=== PATIENT | female | born 1940 | race Caucasian/White ===

== ENCOUNTER → 2018-11-20 | Day surgery (SDC) | payer MEDICARE ==
[2018-11-18 17:20] LABS: BASOPHILS % 0.7 % (0.0-1.0); EOSINOPHILS % 0.5 % (0.0-6.0); HEMATOCRIT 38.6 % (34.2-44.1); HEMOGLOBIN 12.4 g/dL (12.0-16.0); LYMPHOCYTES # (AUTO) 1.8 (1.0-3.2); LYMPHOCYTES % 42.8 % (18.0-39.1); MEAN CORPUSCULAR HEMOGLOBIN 29.9 pg (28-32); MEAN CORPUSCULAR HGB CONC 32.1 g/dL (31-35); MONOCYTES # (AUTO) 0.4 (0.2-0.8); NEUTROPHILS % 46.8 % (38.7-80.0); PLATELET COUNT 174 x10e3/uL (140-360); RED BLOOD COUNT 4.15 x10e6/uL (3.6-5.1); RED CELL DISTRIBUTION WIDTH 12.9 % (11.7-14.4)
[~2018-11-20] MED LIST: AMLODIPINE BESYL5 MG PO; ASPIRIN81 MG PO; ATENOLOL50 MG PO; ATORVASTATIN CA40 MG PO; CELEXA20 MG PO; FENTANYL CITRATE/PF 100MCG/2 ML INJ ONE; HYDROCHLOROTH12.5 M1 PO; PLAVIX75 MG PO; PRIMADONE PO; PROPOFOL IV EMULSION 10 MG/ML 50 ML VIAL ONE; SYNTHROID50 MCG PO; VITAMIN C100 MG PO; VITAMIN D400 UNIT PO; WELLBUTRIN SR150 MG PO; lantanoprost OU; vicodin
--- OUTSIDE RECORDS SUMMARY | 2018-11-20 07:26 | XMS REPORT ---
Author Author [facility] Address Unknown Phone Unavailable Care Team Providers Care Agriculture Research Director Name Role Phone DR ANABELLA KIM Unavailable Unavailable Problems This patient has no known problems. Allergies, Adverse Reactions, Alerts This patient has no known allergies or adverse reactions. Medications This patient has no known medications. Results Test Description Test Time Test Comments Text Results Atomic Results Result Comments BREAST ULTRASOUND BILATERAL 2018-09-29 12:30:58 - DIAG MAMM BILATERAL YAZAN CAD DIGITAL W/AUGMENTATIONBILATERAL DIGITAL DIAGNOSTIC MAMMOGRAM 3D/2D WITH CAD WITH AUGMENTATION: 09/29/2018Digital breast tomosynthesis was performed in addition to routine CC and MLO views. Current mammographic images were evaluated by either a [employer] M-Vu or a [employer] Image[employer] CAD (computer aided detection system). Comparison is made to exams dated 03/03/2009 mammogram and 10/24/2005 mammogram - [facility]. There are scattered fibroglandular tissues in both breasts. Bilateral implants are in place. There are post operative findings and biopsy clips in the right breast. No suspicious mass, architectural distortion, malignant type calcification, or lymph node abnormality detected. INCOMPLETE ASSESSMENT: ADDITIONAL IMAGING EVALUATION RECOMMENDEDUltrasound pending for additional evaluation. Resume annual screening mammography in one year. - BREAST ULTRASOUND BILATERALULTRASOUND OF BOTH BREASTS AND BOTH AXILLA: 09/29/2018Comparison is made to exams dated 03/03/2009 mammogram and 10/24/2005 mammogram - [facility]. Real- time ultrasound of both breasts and both axilla was performed. No abnormalities were seen sonographically in either breast or either axilla. Clinical breast exam was unremarkable, except for contractures around the left implant.IMPRESSION: NEGATIVE There is no sonographic evidence of malignancy. Patient has been informed that she should have a screening mammogram and supplemental ultrasound in 1 year.Guillermina Marquez M.D. dm/:09/29/2018 12:30:58 [employer]er [employer] Unloader: [employer], [facility]: BIRADS 1-2 Combo FU Letter Mammogram BI-RADS: 0 Indeterminate Ultrasound BI-RADS: 1 Negative DIAG MAMM BILATERAL YAZAN CAD DIGITAL W/AUGMENTATION 2018-09-29 12:30:58 - DIAG MAMM BILATERAL YAZAN CAD DIGITAL W/AUGMENTATIONBILATERAL DIGITAL DIAGNOSTIC MAMMOGRAM 3D/2D WITH CAD WITH AUGMENTATION: 09/29/2018Digital breast tomosynthesis was performed in addition to routine CC and MLO views. Current mammographic images were evaluated by either a [employer] M-Vu or a [employer] CAD (computer aided detection system). Comparison is made to exams dated 03/03/2009 mammogram [facility] There are scattered fibroglandular tissues in both breasts. Bilateral implants are in place. There are post operative findings and biopsy clips in the right breast. No suspicious mass, architectural distortion, malignant type calcification, or lymph node abnormality detected. INCOMPLETE ASSESSMENT: ADDITIONAL IMAGING EVALUATION RECOMMENDEDUltrasound pending for additional evaluation. Resume annual screening mammography in one year. - BREAST ULTRASOUND BILATERALULTRASOUND OF BOTH BREASTS AND BOTH AXILLA: 09/29/2018Comparison is made to exams dated 03/03/2009 mammogram and [facility] Real-time ultrasound of both breasts and both axilla was performed. No abnormalities were seen sonographically in either breast or either axilla. Clinical breast exam was unremarkable, except for contractures around the left implant.IMPRESSION: NEGATIVE There is no sonographic evidence of malignancy. Patient has been informed that she should have a screening mammogram and supplemental ultrasound in 1 year.Guillermina Marquez M.D. 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 Breast implants.Comparison: June 19, 2010Technique: Digital craniocaudad and mediolateral oblique views of both breastswere obtained. Implant displacement views were also obtained. Exam dictatedutilizing computer-aided detection (CAD).Findings:There are scattered fibroglandular densities in each breast.There are no suspicious masses in either breast.There are benign calcifications in each breast.Surgical clips are again present in the deep upper-outer right breast.There are no pathologic skin or nipple alterations.Impression:1. No mammographic evidence of malignancy.2. Recommend annual mammographic followup.3. Patient is entered into a reminder system with a target due date for the nextmammogram in one year.BIRADS Result 2: Benign findings.This final report was electronically signed by Dr Edie Lee MD 07/01/20177:53 AMDictated By: EDIE LEEDate: 07/01/2017 07:59
--- OUTSIDE RECORDS SUMMARY | 2018-11-20 07:26 | XMS REPORT | Continuity of Care Document ---
Author Author [facility] Organization [facility] Address [address] [place] [address] ;ext= Care Team Providers Care Mirror Specialist Name Role Phone DR ANABELLA KIM Adm[facility] DR A[facility]BELLA [facility] Admission Diagnosis Code Admission Diagnosis Date ENCOUNTER FOR SCREENING MAMMOGRAM FOR MALIGNANT NEOPLASM OF BREAST Social History Element Description Code Description Smoking Status Code System Start Date End Date Smoking Status [id number] Never smoker SNOMED-CT Problems * No data in the system Medications SNOMED CT Description [id number] Drug Treatment Unknown Allergies * No Allergy Data in the System Results Radiology Results Order: [id number] MM MAMMO SCREEN DIR DIGITAL* Exam Completion Date:06/28/2017 13:45 * Outcome:* Code: 2-Benign Finding Procedures: MM MAMMO SCREEN DIR DIGITALExam Date: 06/28/2017 1:45 PMOrdering Provider: DR ANABELLA NUNEZERClinical Indication: Digital screening mammography. B reast implants.Comparison: June 19, 2010Technique: Digital craniocaudad and m ediolateral oblique views of both breastswere obtained. Implant displacement vie ws were also obtained. Exam dictatedutilizing computer-aided detection (CAD).Fin dings:There are scattered fibroglandular densities in each breast.There are no s uspicious masses in either breast.There are benign calcifications in each breast .Surgical clips are again present in the deep upper-outer right breast.There are no pathologic skin or nipple alterations.Impression:1. No mammographic evidence of malignancy.2. Recommend annual mammographic followup.3. Patient is entered i nto a reminder system with a target due date for the nextmammogram in one year.B IRADS Result 2: Benign findings.This final report was electronically signed by Dr Jose Lee MD 07/01/20177:53 AMDictated By: JOSE LEEDate: 2017 07:59 Vital Signs * No data in the system Plan of Care * No data in the system Procedures Code Code System Procedure Name Target Site Date of Procedure MM MAMMO SCREEN DIR DIGITAL 07/01/2017 07:59 Encounters Date Code Diagnosis Status (ICD10) - Z1231 ENC SCR MAMMO MALIG NEOPLASM BREAST Active Immunizations * No data in the system Functional Status * No data in the system Hospital Discharge Instructions * No data in the system
[2018-11-20 11:15] VITALS: BP 124/66
[2018-11-20 13:34] LABS: WBC,FECAL (FECAL LACTOFERRIN) NEGATIVE (NEGATIVE)
[2018-11-20 13:35] LABS: C DIFFICILE TOXIN A&B AMP PROB NEGATIVE (NEGATIVE)
--- NOTE | 2018-11-20 14:26 | Operative Report ---
DATE OF PROCEDURE: 11/20/2018 SURGEON: Tye Paredes MD PROCEDURE: Colonoscopy and polypectomy. INDICATIONS FOR COLONOSCOPY: Surveillance colonoscopy, personal history of colon polyps, intermittent diarrhea. MEDICATIONS: The patient was done under MAC, please see anesthesiologist's note. PROCEDURE IN DETAIL: With the patient in left lateral decubitus position, flexible fiberoptic Olympus colonoscope was inserted into the rectum with ease and advanced all the way to the cecum. It was then withdrawn slowly. Mucosa overlying the cecum appeared to be within normal limits. Repeat patchy erythema and low-grade edema noted throughout the colon. Random biopsies were obtained. Similar inflammatory findings were noted in the rectum and biopsies were obtained. Two minute polyps were hot biopsied from the rectum. The scope was then retroflexed into the distal rectum and small internal hemorrhoids were noted, none of which was actively bleeding. The scope was then straightened out, it was subsequently withdrawn. After securing an adequate stool specimen, that was sent for the appropriate stool studies. The patient tolerated procedure well. IMPRESSION: 1. Mild patchy colitis. 2. Proctitis, mild. 3. Rectal polyps x2, hot biopsied. 4. Internal hemorrhoids, none actively bleeding. PLAN: Follow up histology. Follow up stool studies. Initiate Bentyl 10 mg one p.o. t.i.d. VSL #3 one p.o. daily. As probably, no need for a followup colonoscopy in this 78-year-old female. Tye Paredes MD [facility] [place]THA /[id number] cc: Enio Radford
== END | disposition home or self-care (01) ==
LOC: OR 07:18
PROVIDERS: ATTEND Internal Medicine Gastroenterology
DX: K52.9 Noninfective gastroenteritis and colitis, unspecified (principal); K62.1 Rectal polyp; K62.89 Other specified diseases of anus and rectum; K64.8 Other hemorrhoids; K21.9 Gastro-esophageal reflux disease without esophagitis; I10 Essential (primary) hypertension; E03.9 Hypothyroidism, unspecified; M81.0 Age-related osteoporosis without current pathological fracture; E78.00 Pure hypercholesterolemia, unspecified; I25.10 Atherosclerotic heart disease of native coronary artery without angina pectoris; I65.29 Occlusion and stenosis of unspecified carotid artery; R00.1 Bradycardia, unspecified; Z01.810 Encounter for preprocedural cardiovascular examination; Z01.812 Encounter for preprocedural laboratory examination; Z79.02 Long term (current) use of antithrombotics/antiplatelets; Z79.82 Long term (current) use of aspirin
CPT/HCPCS: 36415; 45378; 45380; 45384; 83630; 83993; 85025; 87045; 87177; 87328; 87493; 88305; 93005

== ENCOUNTER 2021-11-19 00:54 | Emergency (ER) | payer BC, MEDICARE ==
[~2021-11-19] VITALS: Ht 154.9 cm; Wt 49.4 kg
[~2021-11-19 00:54] MED LIST changes: -FENTANYL CITRATE/PF 100MCG/2 ML INJ ONE; -PROPOFOL IV EMULSION 10 MG/ML 50 ML VIAL ONE
[2021-11-19] MEDS ORDERED: ASPIRIN 81 MG CHEW TAB PO ONE (01:15)
[2021-11-19 02:02] LABS: BASOPHILS % 0.9 % (0.0-1.0); EOSINOPHILS % 0.6 % (0.0-6.0); HEMATOCRIT 38.1 % (34.2-44.1); HEMOGLOBIN 12.7 g/dL (12.0-16.0); LYMPHOCYTES # (AUTO) 1.7 (1.0-3.2); LYMPHOCYTES % 36.5 % (18.0-39.1); MEAN CORPUSCULAR HEMOGLOBIN 32.7 pg (28-32); MEAN CORPUSCULAR HGB CONC 33.3 g/dL (31-35); MEAN CORPUSCULAR VOLUME 98.2 fL (81-99); MONOCYTES # (AUTO) 0.4 (0.2-0.8); NEUTROPHILS # (AUTO) 2.5 (2.1-6.9); NEUTROPHILS % 52.8 % (38.7-80.0); PLATELET COUNT 200 x10e3/uL (140-360); RED BLOOD COUNT 3.88 x10e6/uL (3.6-5.1)
[2021-11-19 02:24] LABS: ALBUMIN 3.8 g/dL (3.5-5.0); ALBUMIN/GLOBULIN RATIO 1.2 (0.8-2.0); ANION GAP 16.9 mmol/L (8-16); CALCIUM 9.4 mg/dL (8.4-10.2); CREATININE, SERUM 0.77 mg/dL (0.57-1.11); POTASSIUM 3.9 mmol/L (3.5-5.1)
[2021-11-19 04:10] VITALS: BP 166/66
== END 2021-11-19 04:11 | disposition home or self-care (01) ==
LOC: ER 00:57
DX: R07.89 Other chest pain (principal); I10 Essential (primary) hypertension; E78.00 Pure hypercholesterolemia, unspecified; R25.1 Tremor, unspecified; H40.9 Unspecified glaucoma
CPT/HCPCS: 36415; 71045; 80053; 84484; 85025; 93005; 99284